=== PATIENT | female | born 1950 | race Caucasian/White ===

== ENCOUNTER → 2016-07-21 | Outpatient (CLI) | payer OTHER | LOC: MC.RAD 10:36 | DX: Z12.31 Encounter for screening mammogram for malignant neoplasm of breast (principal) ==

== ENCOUNTER → 2016-11-17 | Outpatient (REF) | LOC: WSOH 09:15 | DX: Z02.89 Encounter for other administrative examinations (principal) ==

== ENCOUNTER → 2016-12-30 | Outpatient (REF) | LOC: WSOH 16:15 | DX: Z02.89 Encounter for other administrative examinations (principal) ==

== ENCOUNTER → 2019-02-17 | Outpatient (CLI) | payer OTHER | LOC: MC.RAD 09:00 | DX: Z12.31 Encounter for screening mammogram for malignant neoplasm of breast (principal) ==

== ENCOUNTER 2019-03-28 07:31 | Day surgery (SDC) | payer OTHER ==
[~2019-03-28] VITALS: Ht 165.1 cm; Wt 91.9 kg
[2019-03-28 07:43] VITALS: BP 139/96; PULSE 92; TEMP 97.6
[2019-03-28] MEDS ORDERED: ALEVE 220MG220 MG PO (07:45)
[2019-03-28] MEDS ORDERED: OCUVITE1 TA1 PO (07:45)
[2019-03-28] MEDS ORDERED: MULTIPLE VITAMI1 TA5 PO (07:45)
[2019-03-28 09:40] VITALS: BP 121/79; PULSE 82; TEMP 97.6
--- NOTE | 2019-03-28 09:40 | NUR ---
Patient arrives to [facility] via cart, accompanied by [facility] RN Sheyla. Bedside report received. Patient is drowsy, but easily aroused to voice and oriented. She ambulates with standby assist to chair in room. Monitoring applied - VSS and WNL on room air. She denies pain or nausea. Lights dimmed for her to rest. Call light in reach.
[2019-03-28 09:55] VITALS: BP 109/68; PULSE 79
--- NOTE | 2019-03-28 09:55 | NUR ---
Patient is resting comfortably in room. She is now alert, watching TV. Denies any pain or nausea. Offered and receives juice and a muffin to eat.
--- NOTE | 2019-03-28 10:07 | NUR ---
Dr. Fernandez at the bedside and speaks with patient at this time.
[2019-03-28 10:10] VITALS: BP 106/71; PULSE 76
--- NOTE | 2019-03-28 10:10 | NUR ---
Patient denies pain, nausea, or need. Call light in reach. Waiting on ride.
[2019-03-28 10:25] VITALS: BP 124/79; PULSE 76
--- NOTE | 2019-03-28 10:25 | NUR ---
Patient resting comfortably in room. VSS and WNL on room air.
--- NOTE | 2019-03-28 10:49 | NUR ---
Patient has met discharge criteria. Discharge instructions discussed, denies any questions, and verbalizes understanding. PIV removed with catheter intact and hemostasis achieved. Patient changes to clothing independently. Escorted to exit via wheelchair by staff. Discharged to home with ride in private vehicle at 1049.
== END 2019-03-28 10:49 | disposition home or self-care (01) ==
LOC: SDCO 07:31
DX: Z12.11 Encounter for screening for malignant neoplasm of colon (principal); K63.5 Polyp of colon; K57.30 Diverticulosis of large intestine without perforation or abscess without bleeding; K64.0 First degree hemorrhoids; M06.9 Rheumatoid arthritis, unspecified; Z96.653 Presence of artificial knee joint, bilateral; Z96.643 Presence of artificial hip joint, bilateral; Z88.2 Allergy status to sulfonamides
CPT/HCPCS: J2250; J3010; J7030

== ENCOUNTER 2019-08-21 12:02 | Inpatient (IN) | payer OTHER, MEDICARE ==
[~2019-08-21] VITALS: Ht 165.2 cm; Wt 87.9 kg
[~2019-08-21 12:02] MED LIST: ALEVE 220MG220 MG PO; MULTIPLE VITAMI1 TA5 PO; OCUVITE1 TA1 PO
[2019-10-10] VITALS (8 sets, daily range): BP systolic 100–146; BP diastolic 72–90; PULSE 90–95; TEMP 97.6–98.2
[2019-10-10] MEDS ORDERED: FERROUS SU325 MG/TAB PO (07:53)
--- NOTE | 2019-10-10 12:00 | NUR ---
PATIENT IS BACK IN ROOM 330 POST OP. ORIENTED BUT VERY DROWSY. VSS. NO C/O PAIN IN RLE. RTK DRESSING IS CD&I WITH AQUACEL AND CRYOCUFF INPLACE. TEDS & SCD'S TO BLE. POSITIVE PEDAL PULSES TO BLE. CARDENAS TO DD. IV FLUIDS INFUSING VIA PUMP INTO RIGHT HAND IV. NO C/O N/V. LIQUIDS AT BEDSIDE. HEAD TO TOE ASSESSMENT COMPLETE. NO OTHER NEEDS. CALL LIGHT IN REACH.
--- NOTE | 2019-10-10 15:32 | NUR ---
[employer] Supervisor met with patient to discuss discharge planning. Patient lives in [place] and her nephew Charanjit (ph#[phone]) lives with her. Patient sees Dr. Cassidy for primary care and obtains medications from [facility] with no difficulties. Patient has a stool riser, walk in shower, walker, and cane at home. Patient reports she is normally independent with ADLS. Patient has 12 steps at home that she feels she normally manages well. Patient states she plans to take 6-7 weeks off of work to recover. Patient did not have DPOA-HC but wanted to complete the form. SW assisted patient in filling out DPOA-HC and patient chose to designate her nephew Charanjit. WINNIE and WINNIE Jauregui provided witness signature. WINNIE provided original and copies to patient then placed copy in chart. Patient plans to return home upon discharge. SW to continue to follow.
--- NOTE | 2019-10-10 21:30 | NUR ---
Pt. sitting up in bed at this time. Pt. is A&OX3, assessment complete. IV to rt. hand patent, IV fluids infusing per orders. Dressing to rt. knee CDI. Pt. reported pain at a 4 on pain scale at this time. Pt. reports not quite ready for pain meds. Informed pt. to call when ready. Pt. voiced understanding. Pt. assisted with ambulation also at this time. see activity. Pt. repositioned in bed after ambulation. Pt. denies further needs, call light within reach.
[2019-10-11] VITALS: BP 107/61; PULSE 80; TEMP 97.9
[2019-10-11 04:00] VITALS: BP 126/79; PULSE 85; TEMP 97.8
[2019-10-11 07:02] LABS: HEMATOCRIT 36.7 % (37.0-47.0)
[2019-10-11] MEDS ORDERED: NORCO 325 MG-7.1 TAB PO (08:14)
[2019-10-11] MEDS ORDERED: ASPI325T6 PO (08:14)
[2019-10-11] MEDS ORDERED: ROXICODONE 55 MG/TAB PO (08:14)
[2019-10-11 09:09] VITALS: BP 100/62; PULSE 79; TEMP 97.7
--- NOTE | 2019-10-11 09:34 | NUR ---
PT OUT TO [facility] WITH THERAPY AMBULATING WITH STEADY GAIT. EATING AND DRINKING NO N/V. PAIN WELL CONTROLLED WITH PO MEDS.
[2019-10-11 11:51] VITALS: BP 107/62; PULSE 77; TEMP 97.1
--- NOTE | 2019-10-11 11:54 | NUR ---
First visit from the systems management consultant. No needs right now.
--- NOTE | 2019-10-11 17:50 | NUR ---
DISCHARGE INSTRUCTIONS REVIEWED QUESTIONS SOLICITED AND ANSWERED. PT TAKEN TO FRONT BY WHEEL CHAIR.
== END 2019-10-11 17:00 | disposition home or self-care (01) | DRG 470 ==
LOC: JCC 09-04 16:30
PROVIDERS: ADMIT Orthopaedic Surgery
PROC: 0SRC069 Replacement of Right Knee Joint with Oxidized Zirconium on Polyethylene Synthetic Substitute, Cemented, Open Approach (ICD-10-PCS; principal; 2019-10-10 10:30)
DX: M17.11 Unilateral primary osteoarthritis, right knee (principal)
CPT/HCPCS: A4314; A9284; C1776; J0690; J1100; J1885; J2250; J2405; J2704; J3010; J7120

== ENCOUNTER 2019-08-29 10:43 | Outpatient (RCR) | payer OTHER ==
[2019-10-10] MEDS ORDERED: FERROUS SU325 MG/TAB PO (07:53)
[2019-10-11] MEDS ORDERED: ASPI325T6 PO (08:14)
[2019-10-11] MEDS ORDERED: NORCO 325 MG-7.1 TAB PO (08:14)
[2019-10-11] MEDS ORDERED: ROXICODONE 55 MG/TAB PO (08:14)
== END 2019-10-17 08:56 | disposition home or self-care (01) ==
LOC: WSPT 10:43
DX: M17.11 Unilateral primary osteoarthritis, right knee (principal); Z96.651 Presence of right artificial knee joint

== ENCOUNTER 2019-11-22 08:45 | Outpatient (RCR) | payer OTHER, MEDICARE ==
[~2019-11-22 08:45] MED LIST changes: +ASPI325T6 PO; +FERROUS SU325 MG/TAB PO; +NORCO 325 MG-7.1 TAB PO; +ROXICODONE 55 MG/TAB PO
== END 2020-01-15 | disposition home or self-care (01) ==
LOC: WSPT
DX: M17.11 Unilateral primary osteoarthritis, right knee (principal); Z96.651 Presence of right artificial knee joint
CPT/HCPCS: G0283-GP

== ENCOUNTER 2020-02-27 10:45 | Outpatient (RCR) | payer OTHER, MEDICARE | END 2020-04-09 08:47 | disposition home or self-care (01) | LOC: WSPT 10:45 | DX: Z96.651 Presence of right artificial knee joint (principal); Z98.890 Other specified postprocedural states ==

== ENCOUNTER → 2020-04-09 | Outpatient (CLI) | payer OTHER | LOC: MC.RAD 10:44 | DX: Z12.31 Encounter for screening mammogram for malignant neoplasm of breast (principal) ==

== ENCOUNTER → 2020-08-05 | Outpatient (CLI) | payer OTHER | LOC: COL.RAD 12:50 | DX: K80.20 Calculus of gallbladder without cholecystitis without obstruction (principal); R93.7 Abnormal findings on diagnostic imaging of other parts of musculoskeletal system; Z98.1 Arthrodesis status; Z96.643 Presence of artificial hip joint, bilateral ==

== ENCOUNTER 2020-09-26 10:00 | Outpatient (RCR) | payer OTHER | END 2020-10-03 09:53 | disposition home or self-care (01) | LOC: PT.GENESIS 10:00 | DX: M79.10 Myalgia, unspecified site (principal); E66.9 Obesity, unspecified; Z68.33 Body mass index [BMI] 33.0-33.9, adult ==

== ENCOUNTER 2021-10-23 10:07 | Day surgery (SDC) | payer OTHER ==
[~2021-10-23] VITALS: Ht 165.1 cm; Wt 85.3 kg
[2021-10-23] MEDS ORDERED: ALEVE 220MG220 MG PO (11:14)
[2021-10-23 11:31] VITALS: BP 136/87; PULSE 102; TEMP 97.6
[2021-10-23 17:20] VITALS: BP 121/77; PULSE 91; TEMP 97
--- NOTE | 2021-10-23 17:20 | NUR ---
PT TO [facility] 2 PER CART FROM PACU. REPORT RECEIVED. VS OBTAINED. PT CONTINUES TO SLEEP. WILL CONTINUE TO MONITOR.
[2021-10-23 17:35] VITALS: BP 108/80; PULSE 88
--- NOTE | 2021-10-23 17:35 | NUR ---
PT CONTINUES TO SLEEP. CALL LIGHT WITHIN REACH
[2021-10-23 17:50] VITALS: BP 119/78; PULSE 86
--- NOTE | 2021-10-23 17:50 | NUR ---
PT REQUESTING WATER. TOLERATED WATER. CALL LIGHT WITHIN REACH.
[2021-10-23 18:05] VITALS: BP 121/74; PULSE 84
--- NOTE | 2021-10-23 18:05 | NUR ---
PT TOLERLATING WATER. DENIES ANY NEEDS AT THIS TIME.
[2021-10-23 18:20] VITALS: BP 122/72; PULSE 83
--- NOTE | 2021-10-23 18:20 | NUR ---
PT STATES SHE IS READY FOR DISCHARGE. IV DC'D AT THIS TIME.
--- NOTE | 2021-10-23 18:25 | NUR ---
DISCHARGE EDUCATION COMPLETED WITH PT. VERBALIZED UNDERSTANDING. STATES SHE HAD RECEIVED DR SARKAR'S DISCHARGE/HOME CARE FROM THE OFFICE. ALL QUESTIONS ANSWERED. DISCHARGE PAPERWORK GIVEN TO PT.
--- NOTE | 2021-10-23 18:35 | NUR ---
PT OFF UNIT PER WHEELCHAIR. PT DISCHARGE TO HOME WITH NEPHEW PER PERSONAL VEHICLE.
== END 2021-10-23 18:35 | disposition home or self-care (01) ==
LOC: SDCO 10:07
DX: M20.11 Hallux valgus (acquired), right foot (principal); M20.41 Other hammer toe(s) (acquired), right foot; E78.5 Hyperlipidemia, unspecified; F33.9 Major depressive disorder, recurrent, unspecified; E66.9 Obesity, unspecified; M19.90 Unspecified osteoarthritis, unspecified site; K21.9 Gastro-esophageal reflux disease without esophagitis; R73.03 Prediabetes; D69.6 Thrombocytopenia, unspecified; Z68.33 Body mass index [BMI] 33.0-33.9, adult
CPT/HCPCS: C1713; J0690; J1100; J1885; J2704; J3010; J7120

== ENCOUNTER → 2023-07-27 | Outpatient (CLI) | payer OTHER | LOC: MC.RAD 09:59 | DX: Z12.31 Encounter for screening mammogram for malignant neoplasm of breast (principal) ==